=== PATIENT | male | born 1950 | race Caucasian/White ===

== ENCOUNTER → 2021-01-06 | Day surgery (SDC) | payer BC ==
[~2021-01-06] MED LIST: ALBUTEROL2.5 MG/3 M NEB; ALPRAZOLAM0.25 MG PO; ATORVASTATIN CA20 MG PO; CYCLOBENZAPRINE10 MG PO; DESYREL 50 MG T50 MG PO; FENOFIBRATE145 MG PO; GABAPENTIN300 MG PO; LEVOTHYROXINE100 MCG PO; ONDANSETRON HCL8 MG PO; OXYCODONE HCL10 MG PO; PROTONIX 40 MG40 M1 PO; VITAMIN D21250 MCG PO; ZYRTEC10 MG PO
== END | disposition home or self-care (01) ==
LOC: OR 01-04 10:50
DX: C34.90 Malignant neoplasm of unspecified part of unspecified bronchus or lung (principal); I10 Essential (primary) hypertension; I25.10 Atherosclerotic heart disease of native coronary artery without angina pectoris; E78.5 Hyperlipidemia, unspecified; Z88.5 Allergy status to narcotic agent; Z95.5 Presence of coronary angioplasty implant and graft; Z87.891 Personal history of nicotine dependence; Z79.891 Long term (current) use of opiate analgesic; Z79.899 Other long term (current) drug therapy
CPT/HCPCS: 77001; C1769; C1788; J0690; J2405; J2704; J3010; J7040; J7120

== ENCOUNTER 2021-02-21 09:57 | Inpatient (IN) | payer BC ==
[~2021-02-21] VITALS: Ht 182.9 cm; Wt 94.3 kg
[~2021-02-21 09:57] MED LIST changes: -ALBUTEROL2.5 MG/3 M NEB; -ALPRAZOLAM0.25 MG PO; -ONDANSETRON HCL8 MG PO; -ZYRTEC10 MG PO
[2021-02-21 11:53] LABS: HEMOGLOBIN 14.3 gm/dl (14.0-17.5); RED BLOOD COUNT 4.17 M/UL (4.20-5.50); WHITE BLOOD COUNT 7.6 K/UL (4.5-11.0)
[2021-02-21 12:14] LABS: BUN/CREATININE RATIO 19 (0-10)
[2021-02-21] MEDS ORDERED: ALPRAZOLAM0.25 MG PO (17:36)
[2021-02-21] MEDS ORDERED: ONDANSETRON HCL8 MG PO (17:38)
[2021-02-21] MEDS ORDERED: ALBUTEROL2.5 MG/3 M NEB (17:41)
[2021-02-21] MEDS ORDERED: ZYRTEC10 MG PO (17:42)
[2021-02-22 04:08] LABS: RED BLOOD COUNT 4.1 M/UL (4.20-5.50); WHITE BLOOD COUNT 8.1 K/UL (4.5-11.0)
[2021-02-22 04:34] LABS: BUN/CREATININE RATIO 21 (0-10)
[2021-02-23 03:47] LABS: HEMOGLOBIN 13.5 gm/dl (14.0-17.5); WHITE BLOOD COUNT 6.2 K/UL (4.5-11.0)
[2021-02-23 04:07] LABS: BUN/CREATININE RATIO 21 (0-10)
[2021-02-24 03:26] LABS: HEMOGLOBIN 12.8 gm/dl (14.0-17.5); RED BLOOD COUNT 3.78 M/UL (4.20-5.50); WHITE BLOOD COUNT 5.6 K/UL (4.5-11.0)
[2021-02-24 03:50] LABS: BUN/CREATININE RATIO 18 (0-10)
[2021-02-25 02:57] LABS: HEMOGLOBIN 13.2 gm/dl (14.0-17.5); RED BLOOD COUNT 3.91 M/UL (4.20-5.50)
[2021-02-25 03:04] LABS: WHITE BLOOD COUNT 9.3 K/UL (4.5-11.0)
[2021-02-25 03:16] LABS: BUN/CREATININE RATIO 24 (0-10)
--- NOTE | 2021-02-25 23:04 | NUR ---
[employer], MAYCOL, MADE AWARE OF MD ORDER AND PATIENT ON SOFT WRIST RESTRAINTS.
--- NOTE | 2021-03-02 15:01 | NUR ---
03/02/21 1500 SPOKE WITH NAVIN HAWKINS WITH [employer] CONCERNING COMFORT MEASURE ORDERS, UNABLE TO VERIFY. NAVIN SAYS TO DISREGARD THIS ORDER ON [facility]. HAS WRITTEN ORDER FOR COMFORT MEASURES
--- NOTE | 2021-03-02 19:12 | NUR ---
03/02/21 1230 LEFT ELBOW WITH SHEARING NOTED ALLEVYN APPLIED TO FEMI ELBOWS AND COCCYX. ENCOURAGED FAMILY TO HAVE PATIENT TURNED OFTEN
--- NOTE | 2021-03-04 14:29 | NUR ---
spoke w/chao echevarria, [facility], verified ability to transport patient
== END 2021-03-04 15:47 | disposition expired | DRG 175 ==
LOC: ER1 09:57 → CDU 15:08 → PROG CARE 15:08 → MED SURG 4 03-02 11:41
PROVIDERS: Family Medicine; Internal Medicine; Physician Assistant; ADMIT Internal Medicine
PROC: B24BZZZ Ultrasonography of Heart with Aorta (ICD-10-PCS; principal; 2021-02-21)
DX: I26.92 Saddle embolus of pulmonary artery without acute cor pulmonale (principal); J96.21 Acute and chronic respiratory failure with hypoxia; G93.41 Metabolic encephalopathy; J69.0 Pneumonitis due to inhalation of food and vomit; I82.4Z1 Acute embolism and thrombosis of unspecified deep veins of right distal lower extremity; C34.90 Malignant neoplasm of unspecified part of unspecified bronchus or lung; Z51.5 Encounter for palliative care; I70.0 Atherosclerosis of aorta; I45.10 Unspecified right bundle-branch block; I25.10 Atherosclerotic heart disease of native coronary artery without angina pectoris; I10 Essential (primary) hypertension; E78.5 Hyperlipidemia, unspecified; E03.9 Hypothyroidism, unspecified; K21.9 Gastro-esophageal reflux disease without esophagitis; Z88.5 Allergy status to narcotic agent; Z99.81 Dependence on supplemental oxygen; Z93.0 Tracheostomy status; Z79.890 Hormone replacement therapy; Z90.49 Acquired absence of other specified parts of digestive tract; Z87.891 Personal history of nicotine dependence; Z95.5 Presence of coronary angioplasty implant and graft; Z90.02 Acquired absence of larynx; Z85.118 Personal history of other malignant neoplasm of bronchus and lung; Z85.038 Personal history of other malignant neoplasm of large intestine; Z88.8 Allergy status to other drugs, medicaments and biological substances; Z90.89 Acquired absence of other organs; Z98.890 Other specified postprocedural states
CPT/HCPCS: ECHO; 36415; 36600; 71045; 80048; 80053; 81001; 82550; 82553; 82803; 82962; 83605; 83735; 83874; 83880; 84100; 84484; 85025; 85027; 85379; 87070; 87077; 87086; 87186; 87205; 93005; 93306; 93971; 94640; 94760; 99285; J1170; J1630; J1650; J2060; J2185; J2920; J3486; J7040; Q9967; U0003